=== PATIENT | female | born 1965 | race Caucasian/White ===

== ENCOUNTER 2019-10-09 09:02 | Emergency (ER) | payer OTHER, SELFPAY ==
[2019-10-09 09:10] VITALS: BP 117/70; PULSE 60; RESP 18; TEMP 36.6; O2SAT 100
--- NOTE | 2019-10-09 09:12 | ED.GENADULT ---
HPI - General Adult General Chief complaint: Upper Respiratory Infection Stated complaint: COUGH/SORE THROAT/L EAR CLOGGED Source: patient and RN notes reviewed Mode of arrival: ambulatory Limitations: no limitations History of Present Illness HPI narrative: 54-year-old female presents with complaints of respiratory infection symptoms, sore throat, bilateral ear pain for 4 days. Tylenol Cold and cough without relief. Symptoms increased over the last 24 hours with decreased hearing, left ear pain and pressure. Dry cough with intermittent productive cough. No high fevers, drooling, neck or throat swelling. Pain is bilateral. Hurts to swallow. Exacerbation factors consist of eating and drinking. No rhinorrhea. Nasal congestion. No voice change. No nausea, vomiting, or abdominal pain. Tolerating liquids well. Denies ear itching, tinnitus, hearing loss, or trauma. Denies chills, dyspnea, difficulty swallowing, jaw pain, dental pain, facial pain, foreign body sensation, and rash. Remains active. Philly denies being , LMP unknown due to IUD (Mirena) in place. Some parts of this dictation were generated by voice recognition software and may contain typographical and/or grammatical inaccuracies. Related Data Home Medications Medication Instructions Recorded Confirmed sertraline 100 mg tablet 100 mg PO DAILY 06/15/19 10/09/19 amitriptyline 50 mg PO DAILY 10/09/19 10/09/19 Allergies Allergy/AdvReac Type Severity Reaction Status Date / Time No Known Allergies Allergy Verified 10/09/19 09:10 Review of Systems Review of Systems: Narrative: CONSTITUTIONAL: Denies fever, chills, sweats. EYES: Denies visual changes, redness, discharge. ENT: Denies rhinorrhea. Complains of sore throat, congestion, otalgia. CARDIOVASCULAR: Denies chest pain, palpitations, edema. RESPIRATORY: Denies dyspnea, wheezing. Complains of cough, intermittent productive cough. GASTROINTESTINAL: Denies abdominal pain, nausea, vomiting, diarrhea. GENITOURINARY: Denies dysuria, hematuria, abnormal discharge. SKIN: Denies rash or itching. MUSCULOSKELETAL: Denies acute back pain, joint pain, or myalgia. NEUROLOGIC: Denies numbness or focal weakness. PSYCHIATRIC: Denies anxiety or depression. All systems reviewed & are unremarkable except as noted in HPI and below. [facility] Past Medical History Medical History (Updated 10/09/19 @ 09:29 by EVELINE Keane) Anxiety Thyroid disorder Vaginal delivery x 2 Surgical History Surgical History (Updated 10/09/19 @ 09:26 by EVELINE Keane) History of bunionectomy Left fifth toe Family History Family History Father Hypertension Mother Family history of malignant neoplasm of breast in first degree relative Social History Social History (Updated 10/09/19 @ 09:26 by EVELINE Keane) Smoking status: Never smoker Second hand tobacco smoke exposure: No Alcohol intake: never Substance use: never Living arrangements: with family Occupation/Education: occupation Gender identity (if verbalized by the patient): Female Comments At time of signature, agree with nurse past medical, surgical, social, and family history. There is no relevant family history pertinent to the presenting complaint. Exam Narrative: Exam Narrative: GENERAL: This is a well-nourished, well-developed patient, in no apparent distress. Speaks in full sentences without deficits and ambulates with steady gait without dyspnea. HEAD: normocephalic, atraumatic. EYES: PERRL. Sclera clear/white. Vision is grossly intact. EARS: Pinna is normal shape and contour. LT ear with moderate serous build-up and mild erythema and swollen canal with mild yellow purulent discharge and tenderness with manipulation. Clear external auditory canals. RT TM dull church with good cone of light, no erythema or suppuration, unable to visualize the LT TM d
== END 2019-10-09 09:43 | disposition home or self-care (01) ==
PROVIDERS: Emergency Provider Nurse Practitioner Family; PCP Internal Medicine
DX: J06.9 Acute upper respiratory infection, unspecified (principal); H60.392 Other infective otitis externa, left ear; F41.9 Anxiety disorder, unspecified; E03.9 Hypothyroidism, unspecified
CPT/HCPCS: 99213; G0463

== ENCOUNTER → 2019-11-19 13:46 | Outpatient (CLI) | payer OTHER, SELFPAY ==
--- NOTE | ~2019-11-19 | MM_ITS ---
EXAMINATION: MM screening maria antonia BI w vikash HISTORY: Screening mammogram TECHNIQUE: Craniocaudal and mediolateral oblique 3-D tomosynthesis images were obtained and synthetic 2-D images were generated. CAD analysis was submitted and interpreted. COMPARISON: 11/04/2018, 08/29/2017, 03/22/2016 bilateral digital screening mammogram examinations BREAST PARENCHYMAL COMPOSITION: The breasts are heterogeneously dense, which may obscure small masses . FINDINGS: There is no evidence of suspicious mass, calcification, or architectural distortion to sugg est malignancy in either breast. There has been no suspicious interval change. IMPRESSION: 1. No mammographic evidence of malignancy. 2. Recommend routine screening mammography in one year. BI-RADS Category 1: Negative Reviewed, dictated and finalized at location A.
== END ==
PROVIDERS: Visit Provider Obstetrics & Gynecology
DX: Z12.31 Encounter for screening mammogram for malignant neoplasm of breast (principal)
CPT/HCPCS: 77063; 77067

== ENCOUNTER 2020-02-23 00:14 | Outpatient (CLI) | payer OTHER, SELFPAY ==
[2020-02-23 19:00] LABS: SARS-CoV-2 RNA PCR Negative
== END 2020-02-23 00:15 | disposition home or self-care (01) ==
LOC: ANHCOVIDDT 00:15
PROVIDERS: PCP Internal Medicine; Visit Provider Internal Medicine Gastroenterology
DX: Z01.818 Encounter for other preprocedural examination (principal); Z11.59 Encounter for screening for other viral diseases
CPT/HCPCS: 87635; C9803; U0003

== ENCOUNTER 2020-02-25 03:46 | Day surgery (SDC) | payer OTHER, SELFPAY ==
[2020-02-17 14:35] VITALS: BMI 22.8
[2020-02-25 09:13] VITALS: BP 117/76; PULSE 82; RESP 18; TEMP 36.1; O2SAT 100; BMI 22.4
[2020-02-25] MEDS: LACTATED RINGERS 1,000 ML 150 ML IV CONT (09:20)
--- NOTE | 2020-02-25 09:24 | WPDANESEPPF ---
Anes - Initial Pre Proc Eval Procedure: Operation Date: 02/25/20 09:45 Proposed Procedures p Screening Colonoscopy - Corey Doll MD Date/Time: 02/25/20 09:24 Surgeon: Corey Doll MD Pre Op Diagnosis: Neoplasm Screening Patient Data Age: 54 Gender: F Height: 5 ft 9 in Weight: 68.7 kg Last Vital Signs Temp 36.1 C L 02/25/20 09:13 Pulse 82 02/25/20 09:13 Resp 18 02/25/20 09:13 BP 117/76 02/25/20 09:13 Pulse Ox 100 02/25/20 09:13 Allergies Allergy/AdvReac Type Severity Reaction Status Date / Time No Known Allergies Allergy Verified 02/25/20 09:07 Home Medications Medication Instructions Recorded Confirmed Type sertraline 100 mg tablet 100 mg PO DAILY 06/15/19 02/17/20 History levothyroxine 50 mcg tablet 50 mcg PO DAILY #90 tablet 12/10/19 02/17/20 Rx amitriptyline 50 mg tablet 50 mg PO DAILY #90 tablet 12/20/19 02/17/20 Rx peg 3350-electrolytes 236 240 ml PO Q10M #4000 ml 02/14/20 Rx gram-22.74 gram-6.74 gram-5.86 gram solution Patient hx anesthesia problems: none Family hx anesthesia problems: none PMFSH Past Medical History Medical History Anxiety Thyroid disorder Vaginal delivery x 2 Surgical History Surgical History History of bunionectomy Left fifth toe Family History Family History Father Hypertension Mother Family history of malignant neoplasm of breast in first degree relative Social History Social History Smoking status: Never smoker Second hand tobacco smoke exposure: No Alcohol intake: never Substance use: never Gender identity (if verbalized by the patient): Female Anes - Eval Final PreProcedure Day of Procedure 02/25/20 09:24 Patient weight: normal Heart: regular rate and rhythm Lungs: clear to auscultation Airway: Mallampati scale class 1 Neurological: alert and oriented Last oral intake: >/= 8 hours ASA classification: II Emergent: no Anesthetic plan: proceed Anesthesia type and monitoring: general GIVS and standard monitoring Informed Consent: The patient's anesthetic plan and its attendant risks and benefits were discussed with the patient/family/POA. Questions were solicited and answers provided to the satisfaction of the patient/family/POA.
--- NOTE | 2020-02-25 10:13 | PM.HPGS ---
History of Present Illness History of Present Illness Consent: Risks, benefits, and alternatives have been discussed and questions answered. Patient agrees to proceed with procedure. Chief complaint: Neoplasm Screening Narrative: Philly Costello is a 54 year old female here for first screening colonoscopy Review of Systems Constitutional: Constitutional: Denies headache(s) and Denies weakness Eyes: Eyes: Denies blurry vision ENT: Reports Normal hearing present, Denies headache(s) and Denies neck pain Cardiovascular: Cardiovascular: Denies chest pain and Denies dyspnea Respiratory: Respiratory: Denies dyspnea Gastrointestinal: Gastrointestinal: Reports no additional gastrointestinal complaints Genitourinary: Genitourinary: Denies dysuria Musculoskeletal: Musculoskeletal: Denies neck pain Integumentary/Breasts: Skin/Breast: Denies dry skin Neurologic: Reports Normal hearing present, Denies headache(s) and Denies weakness Psychiatric: Psychiatric: Denies anxiety Endocrine: Endocrine: Denies change in body appearance Hematologic/Lymphatic: Hematologic/Lymphatic: Denies easy bleeding Allergic/Immunologic: Allergic/Immunologic: Denies urticaria PMFSH Past Medical History Medical History Anxiety Thyroid disorder Vaginal delivery x 2 Surgical History Surgical History History of bunionectomy Left fifth toe Family History Family History Father Hypertension Mother Family history of malignant neoplasm of breast in first degree relative Social History Social History Smoking status: Never smoker Second hand tobacco smoke exposure: No Alcohol intake: never Substance use: never Gender identity (if verbalized by the patient): Female Meds Home Medications and Allergies Home Medications Medication Instructions Recorded Confirmed Type sertraline 100 mg tablet 100 mg PO DAILY 06/15/19 02/17/20 History levothyroxine 50 mcg tablet 50 mcg PO DAILY #90 tablet 12/10/19 02/17/20 Rx amitriptyline 50 mg tablet 50 mg PO DAILY #90 tablet 12/20/19 02/17/20 Rx peg 3350-electrolytes 236 240 ml PO Q10M #4000 ml 02/14/20 Rx gram-22.74 gram-6.74 gram-5.86 gram solution Allergies Allergy/AdvReac Type Severity Reaction Status Date / Time No Known Allergies Allergy Verified 02/25/20 09:07 Vital Signs Vital Signs - 24 hr 02/25/20 09:13 Temperature 97.0 F L Pulse Rate 82 Respiratory Rate 18 Blood Pressure 117/76 Pulse Oximetry 100 Exam Const: General: comfortable and no acute distress HENMT: General nose exam: Normal nares present Eyes: General: appearance normal, both eyes and all related structures Neck: Neck: no JVD Resp: Auscultation: clear to auscultation bilaterally Cardio: Rate: regular rate Rhythm: regular rhythm GI: Inspection: non-distended GI Palp: Yes Soft to palpation Skin: General skin exam: normal color Neuro: General: gait normal Speech: normal speech Extrem: General: normal to inspection Psych: Mental Status: mental status grossly normal Assessment and Plan Assessment and plan (1) Colon cancer screening: Code(s): Z12.11 - Encounter for screening for malignant neoplasm of colon Status: Acute Assessment and Plan: will proceed with colonoscopy (2) Acquired hypothyroidism: Code(s): E03.9 - Hypothyroidism, unspecified Status: Acute
--- NOTE | 2020-02-25 10:18 | SUR.PREOP ---
pt notified of 20 min delay in procedure start time.
[2020-02-25 10:50] VITALS: BP 105/57; PULSE 78; RESP 13; O2SAT 92
[2020-02-25 11:00] VITALS: BP 101/60; PULSE 75; RESP 16; O2SAT 94
[2020-02-25 11:10] VITALS: BP 110/57; PULSE 72; RESP 18; O2SAT 94
== END 2020-02-25 11:27 | disposition home or self-care (01) ==
PROVIDERS: PCP Internal Medicine; Visit Provider Internal Medicine Gastroenterology
PROC: 0DJD8ZZ Inspection of Lower Intestinal Tract, Via Natural or Artificial Opening Endoscopic (ICD-10-PCS; CPT 45378; principal; 2020-02-25 09:45)
DX: Z12.11 Encounter for screening for malignant neoplasm of colon (principal); E07.9 Disorder of thyroid, unspecified; F41.9 Anxiety disorder, unspecified
CPT/HCPCS: 45378; J2704; J7120

== ENCOUNTER → 2021-01-01 12:43 | Outpatient (CLI) | payer OTHER, SELFPAY ==
--- NOTE | ~2021-01-01 | MM_ITS ---
EXAMINATION: MM screening maria antonia BI w vikash HISTORY: Screening mammogram TECHNIQUE: Craniocaudal and mediolateral oblique 3-D tomosynthesis images were obtained and synthetic 2-D images were generated. CAD analysis was submitted and interpreted. COMPARISON: 11/19/2019, 11/04/2018, 08/29/2017 bilateral digital screening mammogram examinations BREAST PARENCHYMAL COMPOSITION: The breasts are extremely dense, which lowers the sensitivity of mamm ography. FINDINGS: There is no evidence of suspicious mass, calcification, or architectural distortion to sugg est malignancy in either breast. There has been no suspicious interval change. IMPRESSION: 1. No mammographic evidence of malignancy. 2. Recommend routine screening mammography in one year. BI-RADS Category 1: Negative Reviewed, dictated and finalized at location A.
== END ==
PROVIDERS: Visit Provider Obstetrics & Gynecology
DX: Z12.31 Encounter for screening mammogram for malignant neoplasm of breast (principal)
CPT/HCPCS: 77063; 77067

== ENCOUNTER 2021-02-20 14:07 | Outpatient (CLI) | payer OTHER, SELFPAY ==
--- NOTE | ~2021-02-20 | US_ITS ---
EXAMINATION: US pelvic complete w TV EXAM DATE: 02/20/2021 14:44 INDICATION: R10.2 - Pelvic and perineal pain. TECHNIQUE: Pelvic transabdominal and transvaginal sonogram was performed. There are multiple graysca le and Doppler images available for interpretation. Comparison is made to prior examination from 11/25. FINDINGS: Uterus measures 8.0 x 5.1 x 2.9 cm, and is morphologically normal. Endometrial stripe katalina sures 2 mm, within normal limits. There is no free pelvic fluid. Right adnexa: The ovary is not identified. There is no adnexal mass. Left adnexa: The ovary measures 2.0 x 2.5 x 1.5 cm and is morphologically normal. Ovarian vascular fl ow confirmed. IMPRESSION: Unremarkable pelvic ultrasound exam. Reviewed, dictated and finalized at location A.
== END 2021-02-20 14:08 | disposition home or self-care (01) ==
PROVIDERS: PCP Registered Nurse; Visit Provider Obstetrics & Gynecology
DX: R10.2 Pelvic and perineal pain (principal)
CPT/HCPCS: 76830; 76856

== ENCOUNTER → 2022-06-10 14:59 | Outpatient (CLI) | payer OTHER, SELFPAY ==
--- NOTE | ~2022-06-10 | MM_ITS ---
EXAMINATION: MM screening maria antonia BI w vikash HISTORY: Screening TECHNIQUE: Craniocaudal and mediolateral oblique 3-D tomosynthesis images were obtained and synthetic 2-D images were generated. CAD analysis was submitted and interpreted. COMPARISON: Comparison to multiple prior studies sequentially, with oldest reviewed study dated 03/01. BREAST PARENCHYMAL COMPOSITION: The breasts are heterogeneously dense, which may obscure small masses FINDINGS: There is no evidence of suspicious mass, calcification, or architectural distortion to sugg est malignancy in either breast. There has been no suspicious interval change. IMPRESSION: 1. No mammographic evidence of malignancy. 2. Recommend routine screening mammography in one year. BI-RADS Category 1: Negative Reviewed, dictated and finalized at location A.
== END ==
PROVIDERS: PCP Registered Nurse; Visit Provider Obstetrics & Gynecology
DX: Z12.31 Encounter for screening mammogram for malignant neoplasm of breast (principal)
CPT/HCPCS: 77063; 77067

== ENCOUNTER 2022-09-18 08:25 | Day surgery (SDC) | payer OTHER, SELFPAY ==
[2022-09-18] VITALS (30 sets, daily range): BP systolic 100–125; BP diastolic 48–80; PULSE 71–82; RESP 10–16; TEMP 36.4–37.2; O2SAT 94–100; BMI 23.6
--- NOTE | ~2022-09-18 | CT_ITS ---
EXAMINATION: CT abdomen pelvis w con INDICATION: Right-sided abdominal pain TECHNIQUE: Computed tomographic images of the abdomen and pelvis were obtained after the administrati on of 100 cc of Omnipaque 350 intravenous contrast. The dose-length product (DLP) was 401.56 mGy-cm. Automated exposure control and iterative reconstruction technique were employed. COMPARISON: None available FINDINGS: Minimal dependent atelectasis is present in the lung bases. The heart size is normal. The l iver, spleen, pancreas, gallbladder, and adrenal glands are normal. The kidneys are unremarkable. No pathologically enlarged abdominal or pelvic lymph nodes are identified. No free intraperitoneal gas o r evidence of bowel obstruction. The appendix is indistinct and enlarged measuring up to 12 mm. There is edematous stranding of the periappendiceal fat. IMPRESSION: 1. Acute appendicitis. Reviewed, dictated and finalized at location B. VATIONAL SPEAKER IMPRESSION: 1. Acute appendicitis.
--- NOTE | 2022-09-18 08:48 | PC.NURSE ---
Dr. Jacobsen at bedside to assess pt.
--- NOTE | 2022-09-18 08:51 | ECG_ITS ---
Measurements Intervals [place] Rate: 65 P: 65 OH: 150 QRS: 76 QRSD: 93 T: 51 QT: 388 QTc: 405 Interpretive Statements SINUS RHYTHM NO PREVIOUS ECG AVAILABLE FOR COMPARISON Electronically Signed On 09-18-2022 16:13:11 [employer] by Alicia Lai M.D.
--- NOTE | 2022-09-18 08:53 | ED.GENADULT ---
HPI - General Adult General Chief complaint: Unspecified Stated complaint: I haven't felt well in 6 weeks Time Seen by Provider: 09/18/22 08:32 Source: RN notes reviewed History of Present Illness HPI narrative: Patient presents emergency department from home for not feeling well. Patient states she has not been feeling well for approximately 6 weeks states that beginning 6 weeks ago she began to have just general achiness and fatigue she states that that was also associated with nausea she states she never had a measured fever she never had any chest pain shortness of breath cough rhinorrhea sore throat vomiting diarrhea or abdominal pain she gone to the urgent care and had been tested for COVID and influenza which were negative. Patient states then approximately a week ago she began to notice pain in her abdomen across her mid abdomen is now moved into her right lower quadrant states that this pain is achy in nature she states that her nausea has resolved states that she feels still feels achy and states she has been sleeping more she denies again any measured fevers says she has no chest pain or shortness of breath at this time she has no cough she denies having any nausea vomiting or diarrhea states she has not taking thing for the symptoms today Related Data Home Medications Medication Instructions Recorded Confirmed sertraline 100 mg tablet 100 mg PO DAILY 06/15/19 02/22/22 lorazepam 1 mg tablet 1 mg PO DAILY PRN 02/21/22 02/22/22 trazodone 100 mg tablet 100 mg PO QHS PRN 02/21/22 02/22/22 Allergies Allergy/AdvReac Type Severity Reaction Status Date / Time No Known Allergies Allergy Verified 09/18/22 08:47 Review of Systems Review of Systems: Gen.: Denies fevers or chills reports myalgias Eyes: Denies eye pain or visual change ENT: Denies congestion Respiratory: Denies shortness of breath or cough CV: Denies chest pain or palpitations GI: See HPI denies burning, urgency, frequency or hematuria Musculoskeletal: Denies back pain or muscle pain Neuro: Denies numbness, tingling, weakness or focal weakness Skin: Denies rash Except as documented, all other systems reviewed and negative [facility] Past Medical History Medical History (Updated 09/18/22 @ 10:40 by Tal Jacobsen DO) Anxiety Colon cancer screening Thyroid disorder Vaginal delivery x 2 Surgical History Surgical History History of bunionectomy Left fifth toe Family History Family History Father Hypertension Mother Family history of malignant neoplasm of breast in first degree relative Social History Social History Smoking status: Never smoker Second hand tobacco smoke exposure: No Alcohol intake: never Substance use: never Living arrangements: with family Occupation/Education: occupation Gender identity (if verbalized by the patient): Female Exam Narrative: APPEARANCE: No acute distress, nontoxic, resting in bed HEENT: Normocephalic, atraumatic RESPIRATORY: No respiratory distress, clear to auscultation bilaterally with no rhonchi wheezing or rales CARDIOVASCULAR: RRR s murmur ABDOMINAL: Soft nondistended tender to palpation in the right lower quadrant with mild tenderness in the right upper quadrant in the left lower quadrant no tenderness in the left upper quadrant no rebound or guard MUSCULOSKELETAl: Moves all extremities. No clubbing, cyanosis or edema. NEURO: Awake and alert. Following commands, speech normal, no focal deficits SKIN:: Warm, dry. Normal Color PSYCHIATRIC: Normal affect/mood Course Course Emergency Course: Discussed with Dr. Chaparro per general surgery presentation and work-up agrees with admission to his service plan for or later today Discussed with patient and family results of workup and diagnosis. Discussed need for admission. Chrystal
[2022-09-18] MEDS: SODIUM CHLORIDE 0.9% IV 1,000 ML 999 ML IV CONT (09:03)
[2022-09-18 09:06] LABS: Appearance Urine Clear (Clear); Bilirubin Urine 1+ (Negative); Blood Urine Trace-intact (Negative); Color Urine Yellow (Yellow); Glucose Urine UA Negative (Negative); Ketones Urine Trace mg/dL (Negative); Leukocyte Esterase Ur Trace LEU/UL (Negative); Nitrate Urine Negative (Negative); Protein Urine 1+ mg/dL (Negative); Specific Grav Ur 1.015 (1.001-1.035); Urobilinogen Urine 0.2 mg/dL (<2.0); pH Urine 8.5 (5.0-9.0)
[2022-09-18 09:10] LABS: Add Urine Microscopic? YES; Mucus Urine Few /lpf
[2022-09-18 09:11] LABS: Basophils Percent Auto 0.5 % (0.2-1.2); Eosinophils Absolute Auto 0.1 K/mm3 (0-0.3); Eosinophils Percent Auto 0.9 % (0-4.4); Hematocrit 38.7 % (37.0-47.0); Hemoglobin 13.3 g/dL (12.0-15.0); Immature Granulocyte Absolute 0.02 K/mm3 (0.00-0.031); Immature Granulocyte Percent A 0.3 % (0-0.5); Lymphocytes Absolute Auto 1.39 K/mm3 (0.9-3.2); Lymphocytes Percent Auto 18.2 % (18.3-44.2); Mean Corpuscular HGB Conc 34.4 g/dl (32-36); Mean Corpuscular Hemoglobin 31.7 pg (26-34); Mean Corpuscular Volume 92.4 fl (80-100); Mean Platelet Volume 9.5 fl (7.4-10.4); Monocytes Absolute Auto 0.9 K/mm3 (0.1-0.6); Monocytes Percent Auto 11.4 % (2.6-8.5); Neutrophils Absolute Auto 5.3 K/mm3 (1.3-6.7); Neutrophils Percent Auto 68.7 % (45.5-73.1); Platelet Count Result 278 k/mm3 (150-375); Red Blood Count 4.19 M/mm3 (4.2-5.4); Red Cell Distribution Width 11.9 % (11.5-14.5); White Blood Count 7.7 K/mm3 (4.5-10.0)
[2022-09-18 09:21] LABS: Lactic Acid Reflex 1.5 mmol/L (0.7-2.0)
[2022-09-18 09:22] LABS: Lipase 49 U/L (23-300)
[2022-09-18 09:23] LABS: Alanine Aminotransferase 21 U/L (6-35); Albumin Level 4.4 g/dL (3.5-5.1); Alkaline Phosphatase 60 U/L (38-126); Anion Gap 6 mmol/L (8-16); Aspartate Amino Transferase 25 U/L (14-36); Bilirubin,Total 0.5 mg/dL (0.2-1.3); Blood Urea Nitrogen 7 mg/dL (7-17); Calcium 8.9 mg/dL (8.4-10.2); Carbon Dioxide 29 mmol/L (22-30); Chloride 99 mmol/L (98-107); Estimated CRCL calculation 94 ml/min; Estimated Glomerular Filt Rate > 60; Glucose 87 mg/dL (65-110); Magnesium 2.1 mg/dL (1.6-2.3); Sodium 134 mmol/L (137-145)
[2022-09-18 09:40] LABS: Influenza A QL RT-PCR Negative (Negative); Influenza B QL RT-PCR Negative (Negative); RSV RNA, RT-PCR Negative (Negative); SARS-CoV-2 RNA PCR Negative
--- NOTE | 2022-09-18 11:49 | PM.IMHP ---
H&P: HPI History of Present Illness Date/Time: 09/18/22 11:49 Chief Complaint: RLQ abdominal pain Narrative: This is a 57-year-old woman who presented to the ER this morning with a 10-day history of abdominal pain. She reports having generalized malaise, fatigue, body aches, and nausea for the past 4 weeks. She went to an urgent care and tested negative for Influenza A/B and COVID. She was given antinausea medication and started improving. She then had a sudden onset of periumbilical 10 days ago while driving. This was aggravated by movement and bending. Her pain began to localize to the RLQ after the next few days. Since then, she has had localized RLQ pain that fluctuates in intensity. At times, when lying still she does not have pain. Over the past week, she has woke up in the night diaphoretic with chills. Denies any known fevers. Due to her persistent pain, she presented to the ER for evaluation. Labs showed a normal WBC count. CT scan of the abdomen and pelvis showed acute appendicitis. The ED provider contacted our office for surgical evaluation of the acute appendicitis. The patient is now seen in pre-op. She has no other complaints at this time. Bowels have been moving normally. Her nausea resolved a few weeks ago. Denies any vomiting. No previous abdominal surgeries. Review of Systems Review of Systems: All systems reviewed & are unremarkable except as noted in HPI and below Constitutional: Constitutional: Reports no additional constitutional complaints, Reports body ache(s), Reports chills, Reports fatigue, Denies fever(s), Reports malaise and Denies weakness Eyes: Eyes: Reports no additional eye complaints ENT: Reports system reviewed and no additional complaints, except as documented and Denies dizziness Cardiovascular: Cardiovascular: Reports no additional cardiovascular complaints, Denies chest pain and Denies leg edema Respiratory: Respiratory: Reports no additional respiratory complaints, Denies cough and Denies dyspnea Gastrointestinal: Gastrointestinal: Reports as per HPI, Reports no additional gastrointestinal complaints, Reports abdominal pain, Reports bloating, Denies change in bowel habits, Denies change in stool character, Denies diarrhea, Reports nausea and Denies vomiting Genitourinary: Genitourinary: Reports no additional female genitourinary complaints and Denies dysuria Musculoskeletal: Musculoskeletal: Reports no additional musculoskeletal complaints, Denies abnormal gait and Denies joint swelling Integumentary/Breasts: Skin/Breast: Reports system reviewed and no additional complaints, except as docu Neurologic: Reports system reviewed and no additional complaints, except as documented, Denies headache(s), Denies focal weakness, Denies numbness and Denies tingling PMFSH Past Medical History Medical History (Updated 09/18/22 @ 12:05 by EVELINE Chan) Anxiety Colon cancer screening Thyroid disorder Vaginal delivery x 2 Surgical History Surgical History History of bunionectomy Left fifth toe Family History Family History Father Hypertension Mother Family history of malignant neoplasm of breast in first degree relative Social History Social History Smoking status: Never smoker Second hand tobacco smoke exposure: No Alcohol intake: never Substance use: never Living arrangements: with family Occupation/Education: occupation Additional occupation/education comments: Works at [employer] Gender identity (if verbalized by the patient): Female Meds Home Medications and Allergies Home Medications Medication Instructions Recorded Confirmed Type sertraline 100 mg tablet 100 mg PO DAILY 06/15/19 02/22/22 History levothyroxine 50 mcg tablet 50 mcg PO DAILY #90 tabs 03/05/21 02/22/22 Rx lorazepam 1 mg tablet 1 m
[2022-09-18] MEDS: LACTATED RINGERS 1,000 ML 30 ML IV CONT ×2 (12:00→14:41)
--- NOTE | 2022-09-18 12:36 | ED.GENADULT ---
HPI - General Adult General Chief complaint: Unspecified Stated complaint: I haven't felt well in 6 weeks Time Seen by Provider: 09/18/22 08:32 Source: RN notes reviewed Related Data Home Medications Medication Instructions Recorded Confirmed sertraline 100 mg tablet 100 mg PO DAILY 06/15/19 02/22/22 lorazepam 1 mg tablet 1 mg PO DAILY PRN 02/21/22 02/22/22 trazodone 100 mg tablet 100 mg PO QHS PRN 02/21/22 02/22/22 Allergies Allergy/AdvReac Type Severity Reaction Status Date / Time No Known Allergies Allergy Verified 09/18/22 08:47 [facility] Past Medical History Medical History (Updated 09/18/22 @ 12:05 by EVELINE Chan) Anxiety Colon cancer screening Thyroid disorder Vaginal delivery x 2 Surgical History Surgical History History of bunionectomy Left fifth toe Family History Family History Father Hypertension Mother Family history of malignant neoplasm of breast in first degree relative Social History Social History Smoking status: Never smoker Second hand tobacco smoke exposure: No Alcohol intake: never Substance use: never Living arrangements: with family Occupation/Education: occupation Additional occupation/education comments: Works at [employer] Gender identity (if verbalized by the patient): Female Course Vital Signs Vital signs: Vital Signs Pulse Oximetry 100 09/18/22 08:39 Temperature 37.2 C 09/18/22 11:44 Pulse Rate 71 09/18/22 11:44 Respiratory Rate 14 09/18/22 11:44 Blood Pressure 125/70 09/18/22 11:44 Pulse Oximetry 100 09/18/22 11:44 Oxygen Delivery Room Air 09/18/22 08:40 Medical Decision Making Vital Signs Vital Signs: Vital Signs Pulse Oximetry 100 09/18/22 08:39 Temperature 37.2 C 09/18/22 11:44 Pulse Rate 71 09/18/22 11:44 Respiratory Rate 14 09/18/22 11:44 Blood Pressure 125/70 09/18/22 11:44 Pulse Oximetry 100 09/18/22 11:44 Oxygen Delivery Room Air 09/18/22 08:40 Lab Data 09/18/22 08:57 09/18/22 08:57 Labs: Lab Results 09/18/22 09/18/22 09/18/22 Range/Units 08:57 08:57 08:57 WBC 7.7 (4.5-10.0) K/mm3 RBC 4.19 L (4.2-5.4) M/mm3 Hgb 13.3 (12.0-15.0) g/dL Hct 38.7 (37.0-47.0) % MCV 92.4 (80-100) fl MCH 31.7 (26-34) pg MCHC 34.4 (32-36) g/dl RDW 11.9 (11.5-14.5) % Plt Count 278 (150-375) k/mm3 MPV 9.5 (7.4-10.4) fl Immature Gran % (Auto) 0.3 (0-0.5) % Neut % (Auto) 68.7 (45.5-73.1) % Lymph % (Auto) 18.2 L (18.3-44.2) % [place] % (Auto) 11.4 H (2.6-8.5) % Eos % (Auto) 0.9 (0-4.4) % Baso % (Auto) 0.5 (0.2-1.2) % Lymph # (Auto) 1.39 (0.9-3.2) K/mm3 [place] # (Auto) 0.9 H (0.1-0.6) K/mm3 Eos # (Auto) 0.1 (0-0.3) K/mm3 Baso # (Auto) 0.0 (0.0-0.1) K/mm3 Abs Immat Gran (auto) 0.02 (0.00-0.031) K/mm3 Absolute Neuts (auto) 5.3 (1.3-6.7) K/mm3 Absolute Nucleated RBC 0.0 (0.0-0.012) K/mm3 Nucleated RBC % 0.0 (0.0-0.2) % Sodium 134 L (137-145) mmol/L Potassium 4.0 (3.4-5.0) mmol/L Chloride 99 (98-107) mmol/L Carbon Dioxide 29 (22-30) mmol/L Anion Gap 6 L (8-16) mmol/L BUN 7 (7-17) mg/dL Creatinine 0.60 L (0.7-1.0) mg/dL Estim Creat Clear Calc 94 ml/min Estimated GFR > 60 (59 - ) Glucose 87 (65-110) mg/dL Lactic Acid 1.5 (0.7-2.0) mmol/L Calcium 8.9 (8.4-10.2) mg/dL Magnesium 2.1 (1.6-2.3) mg/dL Total Bilirubin 0.5 (0.2-1.3) mg/dL AST 25 (14-36) U/L ALT 21 (6-35) U/L Alkaline Phosphatase 60 (38-126) U/L Total Creatine Kinase Total Protein 8.0 (6.3-8.2) g/dL Albumin 4.4 (3.5-5.1) g/dL Lipase (23-300) U/L Urine Color (Yellow) Urine Appearance (Clear) Urine pH
--- NOTE | 2022-09-18 12:41 | WPDHPUPDATE1 ---
History and Physical Update Update Date/Time: 09/18/22 12:41 History and Physical has been reviewed, including an updated exam of the patient. There are NO changes in the patient's condition. Risks, benefits, and alternatives have been discussed and questions answered. Patient agrees to proceed with procedure.
--- NOTE | 2022-09-18 12:50 | WPDANESEPPF ---
Anes - Initial Pre Proc Eval Procedure: Operation Date: 09/18/22 13:15 Proposed Procedures p Laparoscopic Appendectomy - Surya Chaparro MD Date/Time: 09/18/22 12:50 Surgeon: Surya Chaparro MD Pre Op Diagnosis: I haven't felt well in 6 weeks Patient Data Age: 57 Gender: F Height: 1.75 m Weight: 72.72 kg Last Vital Signs Temp 37.2 C 09/18/22 11:44 Pulse 71 09/18/22 11:44 Resp 14 09/18/22 11:44 BP 125/70 09/18/22 11:44 Pulse Ox 100 09/18/22 11:44 O2 Del Method Room Air 09/18/22 08:40 Allergies Allergy/AdvReac Type Severity Reaction Status Date / Time No Known Allergies Allergy Verified 09/18/22 08:47 Home Medications Medication Instructions Recorded Confirmed Type sertraline 100 mg tablet 100 mg PO DAILY 06/15/19 02/22/22 History levothyroxine 50 mcg tablet 50 mcg PO DAILY #90 tabs 03/05/21 02/22/22 Rx lorazepam 1 mg tablet 1 mg PO DAILY PRN 02/21/22 02/22/22 History trazodone 100 mg tablet 100 mg PO QHS PRN 02/21/22 02/22/22 History Laboratory Tests 09/18/22 09/18/22 09/18/22 08:57 08:57 08:57 WBC 7.7 K/mm3 K/mm3 (4.5-10.0) RBC 4.19 M/mm3 L M/mm3 (4.2-5.4) Hgb 13.3 g/dL g/dL (12.0-15.0) Hct 38.7 % % (37.0-47.0) MCV 92.4 fl fl (80-100) MCH 31.7 pg pg (26-34) MCHC 34.4 g/dl g/dl (32-36) RDW 11.9 % % (11.5-14.5) Plt Count 278 k/mm3 k/mm3 (150-375) MPV 9.5 fl fl (7.4-10.4) Immature Gran % (Auto) 0.3 % % (0-0.5) Neut % (Auto) 68.7 % % (45.5-73.1) Lymph % (Auto) 18.2 % L % (18.3-44.2) [place] % (Auto) 11.4 % H % (2.6-8.5) Eos % (Auto) 0.9 % % (0-4.4) Baso % (Auto) 0.5 % % (0.2-1.2) Lymph # (Auto) 1.39 K/mm3 K/mm3 (0.9-3.2) [place] # (Auto) 0.9 K/mm3 H K/mm3 (0.1-0.6) Eos # (Auto) 0.1 K/mm3 K/mm3 (0-0.3) Baso # (Auto) 0.0 K/mm3 K/mm3 (0.0-0.1) Abs Immat Gran (auto) 0.02 K/mm3 K/mm3 (0.00-0.031) Absolute Neuts (auto) 5.3 K/mm3 K/mm3 (1.3-6.7) Absolute Nucleated RBC 0.0 K/mm3 K/mm3 (0.0-0.012) Nucleated RBC % 0.0 % % (0.0-0.2) Sodium 134 mmol/L L mmol/L (137-145) Potassium 4.0 mmol/L mmol/L (3.4-5.0) Chloride 99 mmol/L mmol/L (98-107) Carbon Dioxide 29 mmol/L mmol/L (22-30) Anion Gap 6 mmol/L L mmol/L (8-16) BUN 7 mg/dL mg/dL (7-17) Creatinine 0.60 mg/dL L mg/dL (0.7-1.0) Estim Creat Clear Calc 94 ml/min ml/min Estimated GFR > 60 (59 - ) Glucose 87 mg/dL mg/dL (65-110) Lactic Acid 1.5 mmol/L mmol/L (0.7-2.0) Calcium 8.9 mg/dL mg/dL (8.4-10.2) Magnesium 2.1 mg/dL mg/dL (1.6-2.3) Total Bilirubin 0.5 mg/dL mg/dL (0.2-1.3) AST 25 U/L U/L (14-36) ALT 21 U/L U/L (6-35) Alkaline Phosphatase 60 U/L U/L (38-126) Total Creatine Kinase Total Protein 8.0 g/dL g/dL (6.3-8.2) Albumin 4.4 g/dL g/dL (3.5-5.1) Lipase Urine Color Urine Appearance Urine pH Ur Specific [place] Urine Protein Urine Glucose (UA) Urine Ketones Ur Blood (Man) Urine Nitrate Urine Bilirubin Urine Urobilinogen Leukocyte Esterase Rfl Urine RBC Urine WBC Hyaline Casts Urine Mucus Influenza A (RT-PCR) Influenza B (RT-PCR) RSV (RT-PCR) SARS-CoV-2 RNA (RT-PCR) 09/18/22 09/18/22 09/18/22 08:57 08:58 08:58 WBC RBC Hgb Hct MCV MCH MCHC RDW Plt Count
[2022-09-18] MEDS: BUPIVACAINE/EPINEPHRINE 0.5% 10 ML VIAL 60 ML INFILTRATE (13:27)
--- NOTE | 2022-09-18 14:41 | PM.SD2 ---
Same Day Admit/Disch: HPI History of Present Illness Narrative: Philly Costello is a 57 year old female who presented to the emergency room today with a 10 day history of right lower quadrant abdominal pain which has been much worse over the last 2 days. Workup in the emergency room showed a normal white blood cell count and a CT scan of the abdomen and pelvis showed a dilated appendix up to 12mm in diameter with thickening of the appendiceal wall and inflammation of the periappendiceal fat. There was no evidence of perforation or abscess. [facility] Past Medical History Medical History Anxiety Colon cancer screening Thyroid disorder Vaginal delivery x 2 Surgical History Surgical History History of bunionectomy Left fifth toe Family History Family History Father Hypertension Mother Family history of malignant neoplasm of breast in first degree relative Social History Social History Smoking status: Never smoker Second hand tobacco smoke exposure: No Alcohol intake: never Substance use: never Living arrangements: with family Occupation/Education: occupation Additional occupation/education comments: Works at [employer] Gender identity (if verbalized by the patient): Female Same Day Admit/Disch: Med Pre-admit Medications Home Medications Medication Instructions Recorded Confirmed Type sertraline 100 mg tablet 100 mg PO DAILY 06/15/19 02/22/22 History levothyroxine 50 mcg tablet 50 mcg PO DAILY #90 tabs 03/05/21 02/22/22 Rx lorazepam 1 mg tablet 1 mg PO DAILY PRN 02/21/22 02/22/22 History trazodone 100 mg tablet 100 mg PO QHS PRN 02/21/22 02/22/22 History hydrocodone 5 mg-acetaminophen 325 1 tablet PO Q4H PRN pain #15 tabs 09/18/22 Rx mg tablet Exam Narrative: Preoperatively the patient had moderate tenderness to deep palpation in the right lower quadrant of the abdomen with a palpable mass. There was voluntary guarding without diffuse peritoneal signs. Const: General: cooperative, healthy appearing and well developed Nutritional Appearance: average body habitus and well nourished Limitations: no limitations HENMT: Head: normal to inspection Ears: hearing grossly normal bilaterally Face/Nose/Sinus: Normal external nose present and Normal nares present Face and sinus: normal facial exam Mouth: Yes Normal oral and palatal mucosa present and Yes tongue normal Teeth and gingiva: dentition normal Eyes: General: appearance normal, both eyes and all related structures Visual Adame: normal visual adame by confrontation Pupils: Equal, round and reactive pupils present EOM: EOMs intact bilaterally Neck: Neck: normal visual inspection, full ROM and no lymphadenopathy Chest: Chest palpation & inspection: normal inspection of the chest and normal palpation of entire chest wall Resp: Effort & Inspection: normal respiratory effort and able to speak in complete sentences Auscultation: clear to auscultation bilaterally Cardio: Jugular venous distension: no JVD Rate: regular rate Rhythm: regular rhythm GI: GI Palp: Yes abdominal tenderness (Right lower quadrant with voluntary guarding.) and Yes Palpable mass present (Palpable right lower quadrant mass) Rectal Exam: deferred Skin: General skin exam: normal color and no rashes or lesions noted Wounds: no wounds Neuro: General: oriented to person, oriented to place and oriented to time Cranial nerves: Yes CN's II-XII intact bilaterally and Yes facial sensation intact/muscles of mastication intact Cognition (Neuro): normal cognition Speech: normal speech Motor exam (neuro): 5/5 motor strength present throughout and Normal motor muscle tone present throughout Sensory Exam: normal sensation Psych: Appearance: grossly normal and well kempt Menta
--- NOTE | 2022-09-18 14:53 | W.PM.PROC2 ---
Procedure Note - Detailed Date of Procedure 09/18/22 Pre-op Diagnosis Acute appendicitis Post-op Diagnosis Same Procedure Performed Laparoscopic appendectomy Surgeon Surya Chaparro MD Chopped Strand Operator LUIS FERNANDO Luna Anesthesia General Indications Patient presented with right lower quadrant abdominal pain and workup in the emergency room with CT scan of the abdomen pelvis showed acute appendicitis. Findings An acutely inflamed appendix which was retrocecal. No periappendiceal abscess. Limited surrounding periappendiceal phlegmon. No perforation of the appendix or necrosis. Description of Procedure After informed consent was obtained the patient was brought to the operating room where she was placed in the supine position and then general endotracheal anesthesia was administered. A Darden catheter was placed decompressed the bladder. The abdomen was then prepped and draped in usual sterile fashion. A time-out was then performed correctly identifying the patient as well as the procedure to be performed and verified that she was on IV antibiotics. I then proceeded to gain entrance into the abdomen by placing a 5mm Optiview port in the left upper quadrant. Once inside the abdomen insufflated to an adequate pneumoperitoneum 15mmHg of CO2. I then placed additional trocar ports to include a 5mm suprapubic trocar port,a 5mm right lower quadrant trocar port, and a 12mm periumbilical trocar port all under direct visualization. Working through these trocar ports use laparoscopic instruments to identify the appendix which was in the right lateral pericolic gutter in the retrocecal position. I was able to mobilize the cecum medially to expose the appendix which was inflamed throughout its whole course but there was no perforation or gangrene of the appendix. There was no periappendiceal abscess although there was a limited phlegmon in the area. I was able to use the tip of the laparoscopic automobile racer to bluntly dissect the appendix away from the surrounding structures. I then held the appendix up with a laparoscopic grasper and then made a defect through the mesoappendix at the base. A 45mm Endo-SHARONDA stapler was then used to divide the appendix flush with the cecum. Multiple vascular reloads to the Endo-SHARONDA stapler was then used to divide the mesoappendix. The appendix was then placed into an Endo-Catch bag and brought out through the periumbilical trocar port site. The appendix was passed off the table and sent to pathology for examination. I then irrigated out the right lower quadrant of the abdomen and the pelvis with sterile saline solution. Hemostasis was excellent on both staple lines. I then aspirated the fluid from the right lower quadrant the abdomen from the pelvis. I then removed all the trocar ports under direct visualization all port sites appeared hemostatic. I then allowed the abdomen decompressed. I then closed the 12mm periumbilical trocar port fascial defect utilizing a 0 Vicryl suture placed in a [id number] fashion. The port sites were then all closed at the skin level utilizing a running subcuticular 4 0 Monocryl suture. The incisions were then cleaned and skin glue was applied. The patient tolerated the procedure well no complications. All sponges, needles, and instrument counts were correct at the end procedure. EBL was _10__cc. The patient was awakened and taken to recovery in stable satisfactory condition Implants None Estimated Blood Loss 10 Urine Output -200.0 Drains No Packing No Pathology Yes (Appendix to pathology) Complications No immediate complications Condition Stable Disposition PACU [facility] Billing Surgery - Charge Forward: Surgery Billing
[2022-09-18] MEDS: ONDANSETRON INJ 4 MG/2 ML VIAL IV PUSH (15:04)
[2022-09-18] MEDS: fentaNYL CITRATE INJ (*CRX) 100 MCG/2 ML VIAL 25 MCG IV PUSH ×8 (15:07→16:19)
[2022-09-18 21:24] LABS: Creatine Kinase 55 U/L (30-135)
== END 2022-09-18 17:51 | disposition home or self-care (01) ==
LOC: ANHED 10:40 → ANHSURGERY 11:17
PROVIDERS: Emergency Provider Emergency Medicine; PCP Registered Nurse; Visit Provider Surgery
PROC: 0DTJ4ZZ Resection of Appendix, Percutaneous Endoscopic Approach (ICD-10-PCS; CPT 44970; principal; 2022-09-18 13:15)
DX: K35.80 Unspecified acute appendicitis (principal); E07.9 Disorder of thyroid, unspecified; F41.9 Anxiety disorder, unspecified; Z20.822 Contact with and (suspected) exposure to COVID-19
CPT/HCPCS: 44970; 36415; 74177; 80053; 81001; 82550; 83605; 83690; 83735; 85025; 87637; 88304; 93005; 96361; 96365; 96375; 99285; J0131; J0330; J1100; J1885; J2250; J2405; J2543; J2704; J2710; J3010; J7030; J7120; Q9967

== ENCOUNTER 2022-12-18 09:15 | Outpatient (CLI) | payer OTHER, SELFPAY ==
--- NOTE | ~2022-12-18 | MMUS_ITS ---
EXAMINATION: MM diagnostic maria antonia BI w vikash, US breast LT limited HISTORY: Unspecified lump of the left breast TECHNIQUE: Craniocaudal, mediolateral, and mediolateral oblique 3-D tomosynthesis images of the breas ts were performed and synthetic 2-D images were generated. CAD analysis was submitted and interpreted . High resolution limited left breast ultrasound was performed. COMPARISON: 06/10/2022, 01/01/2021, 11/19/2019 BREAST PARENCHYMAL COMPOSITION: The breasts are heterogeneously dense, which may obscure small masses . FINDINGS: MAMMOGRAPHIC FINDINGS: Right breast: No suspicious mass, calcification, or architectural distortion are identified to sugges t malignancy. There has been no suspicious interval change. Left breast: There is periareolar skin thickening of the breast. No suspicious mass, calcification, o r architectural distortion are identified. There is focal asymmetry in the subareolar aspect of the l eft breast. ULTRASOUND: There is skin thickening and edema in the periareolar aspect of the left breast. There appears to be a 2 cm subareolar fluid collection. IMPRESSION: 1. Possible small subareolar abscess of the left breast with associated periareolar cellulitis. 2. Trial of antibiotics and clinical follow-up are recommended. If findings persist after four weeks, consider reevaluation with ultrasound. BI-RADS Category 2: Benign finding(s). Reviewed, dictated and finalized at location A. IMPRESSION: 1. Possible small subareolar abscess of the left breast with associated periare olar cellulitis. 2. Trial of antibiotics and clinical follow-up are recommended. If findings per sist after four weeks, consider reevaluation with ultrasound. BI-RADS Category 2: Benign finding(s).
== END 2022-12-18 09:16 | disposition home or self-care (01) ==
LOC: CHSIMG 09:17
PROVIDERS: PCP Registered Nurse; Visit Provider Obstetrics & Gynecology
DX: N64.4 Mastodynia (principal); N63.20 Unspecified lump in the left breast, unspecified quadrant
CPT/HCPCS: 76642; 77062; 77066; G0279

== ENCOUNTER 2023-07-01 11:50 | Emergency (ER) | payer OTHER, SELFPAY ==
[2023-07-01 12:50] VITALS: BP 107/67; PULSE 66; RESP 16; TEMP 36.6; O2SAT 100
--- NOTE | 2023-07-01 13:24 | ED.SKABFB ---
HPI - Skin/Abscess/Foreign Bdy General Chief complaint: Skin/Abscess/Foreign Body Stated complaint: Rash Time Seen by Provider: 07/01/23 13:24 Source: patient, RN notes reviewed and old records reviewed Mode of arrival: ambulatory Limitations: no limitations History of Present Illness HPI narrative: 57 year old female presents to express care with complaints of having red raised areas that are tender on her body this morning, denies any fevers, chills or sweats. Patient reports that she had a left breast abscess in December which cleared up with antibiotics. Patient has red raised areas in right axilla X3, area on right breast below nipple in areola and red raised area on lower abdomen above pubis, no drainage from sites, Patient reports pressure and soreness to above areas.Patient states that she couldn't get into her doctor due to holiday schedule. complaint: other (red raised skin areas) Onset (ago): day(s) (this morning) Severity scale (1-10): 4 Quality: other (pressure and soreness) Related Data Home Medications Medication Instructions Recorded Confirmed trazodone 100 mg tablet 100 mg PO QHS 02/21/22 07/01/23 venlafaxine 37.5 mg tablet 75 mg PO DAILY 01/13/23 07/01/23 venlafaxine 150 mg 150 mg PO DAILY 07/01/23 07/01/23 capsule,extended release 24 hr Allergies Allergy/AdvReac Type Severity Reaction Status Date / Time No Known Allergies Allergy Verified 07/01/23 12:55 Review of Systems Review of Systems: CONSTITUTIONAL: Denies fever, chills, or sweats. CARDIOVASCULAR: Denies chest pain, palpitations, or edema. RESPIRATORY: Denies cough or dyspnea. SKIN: Reports right breast redness and discomfort below nipple in areola, 3 red spots to her right axilla and also one area to her lower pubis area,no drainage but red and tender. MUSCULOSKELETAL: Denies joint pain or myalgia. NEUROLOGIC: Denies headache, numbness, or weakness. All systems reviewed & are unremarkable except as noted in HPI and below PMFSH Past Medical History Medical History Anxiety Colon cancer screening Thyroid disorder Vaginal delivery x 2 Surgical History Surgical History History of bunionectomy Left fifth toe S/P laparoscopic appendectomy 09/18/22 Family History Family History Father Hypertension Mother Family history of malignant neoplasm of breast in first degree relative Social History Social History Smoking status: Never smoker Second hand tobacco smoke exposure: No Alcohol intake: never Substance use: never Lack of Transportation: No Lack of Food: Never True Current Housing: I Have Housing Concerned About Future Housing: No Difficulty Paying Gas/Electric Bills: No Difficulty Paying for Meds: No Currently Unemployed: No Education: Bachelor's Degree Difficulty w/ Childcare or Family Care: No Living arrangements: with family Occupation/Education: occupation Additional occupation/education comments: Works at [employer] Gender identity (if verbalized by the patient): Female Sexual Orientation (if Verbalized by the Patient): Straight or Heterosexual Comments At time of signature, agree with nursing past medical, surgical, social and family history. There is no relevant family history pertinent to the presenting complaint Exam Narrative: GENERAL: Well-appearing, well-nourished, and in no acute distress. HEAD: Normocephalic, atraumatic. EYES: PERRLA, conjunctivae clear, and EOMI. ENT: Mucous membranes moist. Oropharynx without edema, erythema or lesions. NECK: Supple. No lymphadenopathy CHEST: Clear to auscultation. No respiratory distress.SAO2 100% on room air HEART: Regular rate and rhythm. SKIN: Warm, dry.? Patch of red raised tender tissue above pub
== END 2023-07-01 13:46 | disposition home or self-care (01) ==
PROVIDERS: Emergency Provider Registered Nurse; PCP Registered Nurse
DX: N61.1 Abscess of the breast and nipple (principal); L02.211 Cutaneous abscess of abdominal wall; L03.111 Cellulitis of right axilla; F41.9 Anxiety disorder, unspecified; E03.9 Hypothyroidism, unspecified
CPT/HCPCS: 99213; G0463

== ENCOUNTER 2023-12-26 15:46 | Outpatient (CLI) | payer OTHER, SELFPAY ==
--- NOTE | ~2023-12-26 | MM_ITS ---
EXAMINATION: MM screening maria antonia BI w vikash HISTORY: Screening mammogram TECHNIQUE: Craniocaudal and mediolateral oblique 3-D tomosynthesis images were obtained and synthetic 2-D images were generated. CAD analysis was submitted and interpreted. COMPARISON: 12/18/2022 diagnostic bilateral mammogram and Limited left breast ultrasound examination 06/10/2022, 01/01/2021 bilateral screening mammogram examinations BREAST PARENCHYMAL COMPOSITION: The breasts are heterogeneously dense, which may obscure small masses . FINDINGS: There is no evidence of suspicious mass, calcification, or architectural distortion to sugg est malignancy in either breast. There has been no suspicious interval change. IMPRESSION: 1. No mammographic evidence of malignancy. 2. Recommend routine screening mammography in one year. BI-RADS Category 1: Negative Reviewed, dictated and finalized at location B.
== END 2023-12-26 15:47 | disposition home or self-care (01) ==
PROVIDERS: PCP Registered Nurse; Visit Provider Obstetrics & Gynecology
DX: Z12.31 Encounter for screening mammogram for malignant neoplasm of breast (principal)
CPT/HCPCS: 77063; 77067

== ENCOUNTER 2025-03-10 12:53 | Outpatient (CLI) | payer OTHER, SELFPAY ==
--- NOTE | ~2025-03-10 | MM_ITS ---
EXAMINATION: MM screening maria antonia BI w vikash HISTORY: Screening TECHNIQUE: Craniocaudal and mediolateral oblique 3-D tomosynthesis images were obtained and synthetic 2-D images were generated. CAD analysis was submitted and interpreted. COMPARISON: Comparison to multiple prior studies sequentially, with oldest reviewed study dated 11/04. BREAST PARENCHYMAL COMPOSITION: Dense: The breasts are heterogeneously dense, which may obscure small masses FINDINGS: There is no evidence of suspicious mass, calcification, or architectural distortion to sugg est malignancy in either breast. There has been no suspicious interval change. IMPRESSION: 1. No mammographic evidence of malignancy. 2. Recommend routine screening mammography in one year. BI-RADS Category 1: Negative Reviewed, dictated and finalized at location B.
--- OUTSIDE RECORDS SUMMARY | 2025-03-10 12:58 | XMS_ITS | Clinical Summary ---
Author Organization [facility] Address [place] [address] Care Team Providers Care Wind Instrument Repairer Name Role Phone Tatyana Rogers Primary Care Provider [phone] Allergies Active Allergy Reactions Criticality Noted Date Comments Doxycycline Rash Low 2021 Medications traZODone (DESYREL) 100 MG tablet Pt takes 150mg sometimes and cuts the 100mg in half. 2 Active LORazepam (ATIVAN) 1 MG tablet 3 (three) times daily as needed. 2 Active valACYclovir (VALTREX) 1 g tablet TAKE 1 TABLET BY MOUTH EVERY 12 HOURS NEEDED FOR SYMPTOMS FOR 3 DAYS TAKE AT ONSET OF SYMPTOMS 2 Active venlafaxine XR (EFFEXOR-XR) 150 MG 24 hr capsule Take 1 capsule (150 mg total) by mouth daily. 3 Active aspirin 81 MG chewable tablet Chew 1 tablet (81 mg total) by mouth daily. Active fluticasone propionate (FLONASE) 50 MCG/ACT nasal sprayIndications:A cute non-recurrent maxillary sinusitis SPRAY 2 SPRAYS BY NASAL ROUTE DAILY 48 mL 1 3 Active venlafaxine XR (EFFEXOR-XR) 75 MG 24 hr capsule Take 1 capsule (75 mg total) by mouth daily. Active cetirizine (ZYRTEC) 10 MG tablet Take 1 tablet (10 mg total) by mouth daily. Active cefdinir (OMNICEF) 300 MG Cap capsuleIndications :Strep throat Take 1 capsule (300 mg total) by mouth 2 (two) times daily. 20 capsule 5 Active levothyroxine (SYNTHROID) 50 MCG tabletIndications: Acquired hypothyroidism TAKE 1 TABLET BY MOUTH EVERY DAY 90 tablet 2 5 Active Active Problems Problem Noted Date Diagnosed Date Elevated LDL cholesterol level 02/19/2021 WBC decreased 02/19/2021 Anxiety and depression 02/08/2021 Acquired hypothyroidism 02/08/2021 Vegetarian diet 02/08/2021 BMI 23.0-23.9, adult 02/08/2021 Immunizations Immunization Administration Dates Next Due Fluzone (IIV3, Trivalent, 0. 5 ML Prefilled Syringe) 07/13/2024 PFIZER COVID-19 (ORIGINAL FO RMULATION, PURPLE CAP) mRNA, LNP-S, PF, 30 MCG/0.3 ML DOSE 07/25/2021,11/30/2020,11/06/2020 Shingrix 10/04/2022,06/14/2022 Tdap (Adacel) 02/08/2021 Family History Medical History Relation Comments Alcohol Abuse Brother Alcohol/Drug Brother Drug Abuse Brother Heart Disease Brother Mental Health Brother Anxiety Daughter Depression Daughter Elers-Danlos Syndrome Daughter Alcohol Abuse Father Depression Father Hypertension Father Liver Disease Father Depression Maternal Aunt Alcohol Abuse Maternal Grandfather Lung Cancer Maternal Grandfather Colon Cancer Maternal Grandmother Breast Cancer Mother Depression Mother Alcohol Abuse Paternal Grandfather CO Paternal Grandfather Multiple Sclerosis Paternal Grandmother Anxiety Son Depression Son Relation Status Comments Brother Alive Daughter Alive Father Maternal Aunt Maternal Grandfather Maternal Grandmother Mother Alive Paternal Grandfather Paternal Grandmother Son Alive Social History Tobacco Use Types Packs/Day Years Used Date Smoking Tobacco: Former Cigarettes Smokeless Tobacco: Never Tobacco Cessation:Counseling Given: Yes Comments:Was a social smoker in high school <2yrs Alcohol Use Standard Drinks/Week Comments Not Currently 0 (1 standard drink = 0.6 oz pur e alcohol) PHQ-2 Answer Date Recorded Patient Health Questionnaire-2 Score 3 07/13/2024 Comments No Sex and Gender Information Value Date Recorded Sex Assigned at Not on file Legal Sex Female 11:13 AM CDT Gender Identity Not on file Sexual Orientation Not on file Last Filed Vital Signs Vital Sign Reading Time Taken Comments Blood Pressure 120/68 07/13/2024 3:22 PM WET SUIT GLUER Pulse 80 07/13/2024 3:22 PM WET SUIT GLUER Temperature 36.1 C (97 F) 07/13/2024 3:22 PM WET SUIT GLUER Respiratory Rate 16 07/13/2024 3:22 PM WET SUIT GLUER Oxygen Saturation 98% 07/13/2024 3:22 PM WET SUIT GLUER Inhaled Oxygen Concentration - - Weight 72.8 kg (160 lb 9.6 oz) 07/13/2024 3:22 P M WET SUIT GLUER Height 175.3 cm (5' 9) 07/13/2024 3:22 PM WET SUIT GLUER Body Mass Index 23.72 07/13/2024 3:22 PM WET SUIT GLUER Plan of Treatment Health Maintenance Due Date Last Done Comments Cervical Cancer Screening Pa p Smear (Age 30 to 64) Every 3 Years 1967 Hepatitis B Vaccines (1 of 3 - 19+ 3-dose series) 1986 Cervical Cancer Screening Pa p with HPV Testing (Age 30 to 64) Every 5 Years 1997 Pneumococcal Vaccine: 50+ Years (1 of 1 - PCV) 2017 COVID-19 Vaccine (4 - 2023-2 5 season) 2024 07/25/2021, 11/30/2020, 11/06/2020 PHQ-2 (Physician [place]) 08/11/2024 07/13/2024 Annual Physical 07/13/2025 07/13/2024, 06/17/2023, 06/14/2022 Cervical Cancer Screening with HPV 07/13/2025 Postponed from 1997 (Going to Outside Clinic) Mammogram Screening 12/25/2025 12/26/2023, 12/18/2022, 06/10/2022 Colorectal Cancer Screening Colonoscopy (10 Years) 02/24/2030 02/25/2020 DTaP, Tdap and Td Vaccines ( 2 - Td or Tdap) 02/08/2031 02/08/2021 Colorectal Cancer Screening FIT/FOBT (1 Year) Discontinued 03/29/2018 Zoster Vaccines Completed 10/04/2022, 06/14/2022 Hepatitis C Completed 11/04/2024 Meningococcal B Vaccine Aged Out No l onger eligible based on patient's age to complete this topic Meningococcal Vaccine Aged Out No shadi chino eligible based on patient's age to complete this topic RSV Immunizations Under 20 Months Aged Out No longer eligible b ased on patient's age to complete this topic Procedures Procedure Name Priority Date/Time Associated Diagnosis Comments HEPATITIS C ANTIBODY W/RFX TO HCV RNA Routine 11/04/2024 12:10 PM CDT Need for hepatitis C screening test MAMMOGRAM GENERIC (SCAN ORDER) 12/26/2023 COLONOSCOPY GENERIC (SCAN ORDER) 02/25/2020 FECAL BLOOD OCCULT (SCAN ORDER) Routine 03/29/2018 from Last 3 Months or Most Recently Relevant to Health Maintenance Results * HEPATITIS C ANTIBODY W/RFX TO HCV RNA ([facility] ONLY) (11/04/2024 12:10 PM CDT) HEPATITIS C AB NON-REACT MAGGI NON-REACT MAGGI Cognitive Code [facility] Comment: HCV antibody was non-reactive. There is no laboratory evidence of HCV infection. In most cases, no further action is required. However, if recent HCV exposure is suspected, a test for HCV RNA (test code 50894) is suggested. For additional information please refer to http://education.Stem/faq/DYE31r6 (This link is being provided for informational/ educational purposes only.) 11/04/2024 12:1 0 PM CDT 11/04/2024 12:11 PM CDT Narrative Resulting Agency Comment Performing Organization Information: Site ID: ANNE MARIE Name: [employer] Address: [address] [place] [address] [place] [address] Director: Perry Rossi MD Tatyana [facility] Final Resul t [facility] [place] [id number] [place] [address] [place] [address], [place] * MAMMOGRAM GENERIC (SCAN ORDER) (12/26/2023) Anatomical Region Laterality Modality Other 12/26/2023 [facility] Scanned SCANNING Final Resu lt * COLONOSCOPY GENERIC (02/25/2020) 02/25/2020 [facility] Scanned SCANNING Final Resu lt * FECAL BLOOD OCCULT (03/29/2018) 03/29/2018 us Documents Scanned SCANNING Final Result [facility] from Last 3 Months or Most Recently Relevant to Health Maintenance Insurance WiN MS WiN MS OPEN ACCESS [facility] Care Teams Wind Instrument Repairer Relationship Specialty Start Date End Date Tatyana Rogers APNP [address] [place] [id number] PCP - General NURSE PRACTITIONER 02/08/21
--- OUTSIDE RECORDS SUMMARY | 2025-03-10 12:58 | XMS_ITS | Clinical Summary ---
Author Organization [facility] [place] [address] Address [address] [place] [phone] Care Team Providers Care Mechanical Field Engineer Name Role Phone Tatyana Rogers Primary Care Provider + Allergies Active Allergy Reactions Criticality Noted Date Comments Doxycycline Rash Medium 2021 Medications levothyroxine (SYNTHROID) 50 mcg tablet Take 1 tablet (50 mcg total) by mouth daily 09/26/2022 Active LORazepam (ATIVAN) 1 mg tablet 3 (three) times a day as needed 03/17/2022 Active valACYclovir (VALTREX) 1 gram tablet TAKE 1 TABLET BY MOUTH EVERY 12 HOURS NEEDED FOR SYMPTOMS FOR 3 DAYS TAKE AT ONSET OF SYMPTOMS 07/29/2022 Active fluticasone propionate (FLONASE) 50 mcg/actuation nasal spray SPRAY 2 SPRAYS BY NASAL ROUTE DAILY 05/19/2023 Active cetirizine (ZyrTEC) 10 mg chewable tablet Take 1 tablet (10 mg total) by mouth daily Active aspirin 81 mg chewable tablet Take 1 tablet (81 mg total) by mouth daily Active clobetasoL (TEMOVATE) 0.05 % ointment APPLY TO HANDS TWICE A DAY NEEDED 10/25/2024 Active traZODone (DESYREL) 100 mg tabletIndicatio ns:insomnia associated with depression Take 1 tablet (100 mg total) by mouth nightly 90 tablet 1 11/26/2024 05/25/20 Active venlafaxine XR (EFFEXOR-XR) 150 mg 24 hr capsuleIndicati ons:Generalized Anxiety Disorder Take 1 capsule (150 mg total) by mouth daily 90 capsule 1 11/26/2024 05/25/20 25 Active busPIRone (BUSPAR) 15 mg tabletIndicatio ns:Generalized Anxiety Disorder Take 1 tablet (15 mg total) by mouth 2 (two) times a day 180 tablet 1 11/26/2024 05/25/20 25 Active venlafaxine XR (Effexor XR) 37.5 mg 24 hr capsuleIndicati ons:Generalized Anxiety Disorder Take 1 capsule (37.5 mg total) by mouth daily Take with 150 mg capsule for a total of 187.5 mg daily. 90 capsule 1 01/14/2025 07/13/20 25 Active Active Problems Problem Noted Date Diagnosed Date Elevated LDL cholesterol level 02/19/2021 0 12/16/2022 WBC decreased 02/19/2021 12/16/2022 Acquired hypothyroidism 02/08/2021 12/17/19 23 Anxiety and depression 02/08/2021 Encounters Date Type Department Care Team Description 01/14/2025 8:30 AM CDT Telemedicine [facility] Department of Psychiatry [address] [place] [address], [address] [phone] Jaida Odonnell MD Generalized anxiety disorder (Primary Dx); Prolonged grief disorder from Last 3 Months Medical History Medical History Date Comments Hypothyroidism Family History Medical History Relation Name Comments Substance Abuse Brother Alcohol abuse Father Relation Name Status Comments Brother Father Social History Tobacco Use Types Packs/Day Years Used Date Smoking Tobacco: Former Cigarettes Tobacco Cessation:Counseling Given: Not Answered Comments Unknown Sex and Gender Information Value Date Recorded Sex Assigned at Not on file Legal 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 Gender Identity Female 12/16/2022 8:11 AM CDT Sexual Orientation Straight 09/02/2024 1: 53 PM AUTOMAT CAR ATTENDANT Obstetrics History Last Filed Vital Signs Vital Sign Reading Time Taken Comments Blood Pressure 115/70 11/19/2024 8:02 AM CDT Pulse 70 11/19/2024 8:02 AM CDT Temperature 37.3 C (99.1 F) 11/19/2024 8:02 AM CDT Respiratory Rate 20 11/19/2024 8:02 AM CDT Oxygen Saturation 98% 11/19/2024 8:02 AM CDT Inhaled Oxygen Concentration - - Weight 72.5 kg (159 lb 12.8 oz) 11/19/2024 8:02 AM CDT Height 175.3 cm (5' 9) 11/19/2024 8:02 AM CDT Body Mass Index 23.6 11/19/2024 8:02 AM CDT Plan of Treatment Health Maintenance Due Date Last Done Comments Breast Cancer Screening-Mammogram 1967 Cervical Cancer Screening 1967 Colon Cancer Screening-Colonoscopy 1967 Depression Screening 1967 Hepatitis C Screening 1967 Hepatitis B Screening 1985 Regular Well Visit/Exam 18-64 1985 Covid-19 Vaccine (2023-2 5 season) 2024 07/25/2021, 11/30/2020, 11/06/2020 Influenza Vaccine (#1) 2025 07/13/2024 DTaP/Tdap/Td Vaccine (2 - Td or Tdap) 02/08/2031 02/08/2021 Zoster Vaccine Completed 10/04/2022, 06/14/2022 Pneumococcal vaccine <65 Aged Out No longer eligible based on patient's age to complete this topic Insurance [facility] [id number] [facility] [id number] [facility] [id number] Member Subscriber Plan / Payer (Ef fective 2021-Present) Name:Philly Costello Member ID:[id number] Relation to Subscriber:Self Name:Philly Costello Subscriber ID:[id number] Payer ID:[id number] Type:[employer] HMO/PPO Address: [employer] CLAIMS [address] [place] [id number] Care Teams Mechanical Field Engineer Relationship Specialty Start Date End Date Tatyana Rogers PA [address] [place] [phone] PCP - General Nurse Practitioner 04/23/24
--- OUTSIDE RECORDS SUMMARY | 2025-03-10 12:58 | XMS_ITS | Referral Summary ---
Author Organization [facility] [place] [address] Address [facility] [address] Care Team Providers Care Personal Lines Appraiser Name Role Phone Tatyana Rogers Primary Care Provider + Encounters Date Type Department Care Team Description 01/14/2025 8:30 AM CDT Telemedicine [facility] Department of Psychiatry [address] [facility], [facility] [address] [place] [address] Jaida Odonnell MD Generalized anxiety disorder (Primary Dx); Prolonged grief disorder from Last 3 Months Allergies Active Allergy Reactions Criticality Noted Date [...] mouth nightly 90 tablet 1 11/26/2024 05/25/20 25 Active venlafaxine XR (EFFEXOR-XR) 150 mg 24 [...] 02/08/2021 12/17/19 23 Anxiety and depression 02/08/2021 Social History Tobacco Use Types Packs/Day Years Used Date Smoking Tobacco: Former Cigarettes Tobacco Cessation:Counseling Given: Not Answered Comments Unknown Sex and Gender Information Value Date Recorded Sex Assigned at Not on file Legal Sex Female 1:41 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
== END 2025-03-10 12:54 | disposition home or self-care (01) ==
LOC: CHSIMG 12:55
PROVIDERS: PCP Registered Nurse; Visit Provider Obstetrics & Gynecology
DX: Z12.31 Encounter for screening mammogram for malignant neoplasm of breast (principal)
CPT/HCPCS: 77063; 77067